=== PATIENT | female | born 1975 ===

== ENCOUNTER 2017-03-04 08:17 | Emergency (ER) | payer BC, SELFPAY ==
--- NOTE | 2017-03-04 08:44 | EDM.PDOC ---
ED HPI GENERAL MEDICAL PROBLEM - General Chief Complaint: General Stated Complaint: SORE THROAT Time Seen by Provider: 03/04/17 08:43 - History of Present Illness INITIAL COMMENTS - FREE TEXT/NARRATIVE: HISTORY AND PHYSICAL: History of present illness: Patient's 41-year-old female presents with a concern of cough sore throat general body aches vomiting diarrhea or last several days no documented fever chills or other concern Review of systems: As per history of present illness and below otherwise all systems reviewed and negative. Past medical history: As per history of present illness and as reviewed below otherwise noncontributory. Surgical history: As per history of present illness and as reviewed below otherwise noncontributory. Social history: No reported history of drug or alcohol abuse. Family history: As per history of present illness and as reviewed below otherwise noncontributory. Physical exam: HEENT: Atraumatic, normocephalic, pupils reactive, negative for conjunctival pallor or scleral icterus, mucous membranes moist, throat clear, neck supple, nontender, trachea midline. Lungs: Clear to auscultation, breath sounds equal bilaterally, chest nontender. Heart: S1S2, regular, negative for clicks, rubs, or JVD. Abdomen: Soft, nondistended, nontender. Negative for masses or hepatosplenomegaly. Negative for costovertebral tenderness. Pelvis: Stable nontender. Genitourinary: Deferred. Rectal: Deferred. Extremities: Atraumatic, negative for cords or calf pain. Neurovascular unremarkable. Neuro: Awake, alert, oriented. Cranial nerves II through XII unremarkable. Cerebellum unremarkable. Motor and sensory unremarkable throughout. Exam nonfocal. Diagnostics: Chest x-ray influenza screen rapid strep Therapeutics: None Impression: #1 viral syndrome Definitive disposition and diagnosis as appropriate pending reevaluation and review of above. Generalized Pain Score (Numeric/FACES): 10 - Related Data Allergies Allergy/AdvReac Type Severity Reaction Status Date / Time oxycodone HCl [From Percocet] Allergy Intermediate Hives Verified 03/04/17 08:35 Penicillins Allergy Intermediate Shortness Verified 03/04/17 08:35 of Breath codeine Allergy Mild Hives Verified 03/04/17 08:35 hydrocodone Allergy Hives Verified 03/04/17 08:35 morphine AdvReac Nausea and Verified 03/04/17 08:35 Vomiting propoxyphene napsylate AdvReac Nausea and Verified 03/04/17 08:35 [From Darvocet-N 100] Vomiting Sulfa (Sulfonamide AdvReac Diarrhea Verified 03/04/17 08:35 Antibiotics) Home Meds: Home Meds Albuterol [Ventolin HFA] 2 puff INH Q4H PRN 06/29/13 [History] Past Medical History HEENT History: Reports: Other (See Below) Other HEENT History: dental abcess Respiratory History: Reports: Asthma Genitourinary History: Reports: UTI, Recurrent Other Genitourinary History: frequent UTI, kidney infection [employer] History: Reports: Other OB/BYN History: 2 vaginal living children Psychiatric History: Reports: Anxiety Hematologic History: Reports: Anemia Other Oncologic History: 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 - Infectious Disease History Infectious Disease History: Reports: Chicken Pox - Past Surgical History GI Surgical History: Reports: Appendectomy, EGD Female Surgical History: Reports: Breast Implant, Hysterectomy Other Musculoskeletal Surgeries/Procedures:: R wrist surgery x 2 Social & Family History - Family History Family Medical History: Noncontributory - Tobacco Use Smoking Status *Q: Never Smoker Second Hand Smoke Exposure: No - Caffeine Use Caffeine Use: Reports: None - Alcohol Use Days Per Week of Alcohol Use: 0 - Recreational Drug Use Recreational Drug Use: No - Living Situation & Occupation Occupation: Employed ED ROS GENERAL - Review of Systems Review Of Systems: ROS reveals no pertinent complaints other than HPI. ED EXAM, GENERAL - Physical Exam Exam: See Below (See dictation) Course - Vital Signs Last Recorded V/S: Last Vital Signs Temp 37.1 C 03/04/17 08:33 Pulse 108 H 03/04/17 08:33 Resp 18 03/04/17 08:33 BP 133/103 H 03/04/17 08:33 Pulse Ox 98 03/04/17 08:33 - Orders/Labs/Meds Orders: Active Orders 24 hr Category Date Time Status Chest 2V [CR] Stat Exams 03/04/17 08:31 Taken CULTURE STREP A CONFIRMATION [RM] Stat Lab 03/04/17 08:27 Results STREP SCRN A RAPID W CULT CONF [RM] Stat Lab 03/04/17 08:27 Results Departure - Departure Time of Disposition: 09:33 Disposition: Home, Self-Care 01 Condition: Good Clinical Impression: Viral syndrome - Discharge Information Instructions: Viral Respiratory Infection, [id number] Referrals: PCP,None [Primary Care Provider] - Forms: ED Department Discharge Additional Instructions: The following information is given to patients seen in the emergency department who are being discharged to home. This information is to outline your options for follow-up care. We provide all patients seen in our emergency department with a follow-up referral. The need for follow-up, as well as the timing and circumstances, are variable depending upon the specifics of your emergency department visit. If you don't have a primary care physician on staff, we will provide you with a referral. We always advise you to contact your personal physician following an emergency department visit to inform them of the circumstance of the visit and for follow-up with them and/or the need for any referrals to a consulting specialist. The emergency department will also refer you to a specialist when appropriate. This referral assures that you have the opportunity for followup care with a specialist. All of these measure are taken in an effort to provide you with optimal care, which includes your followup. Under all circumstances we always encourage you to contact your private physician who remains a resource for coordinating your care. When calling for followup care, please make the office aware that this follow-up is from your recent emergency room visit. If for any reason you are refused follow-up, please contact the [facility] emergency department at and asked to speak to the emergency department charge nurse. Follow-up primary medical doctor wanted 2 days Motrin/Tylenol direct return as needed as discussed - My Orders Last 24 Hours: My Active Orders 03/04/17 08:27 CULTURE STREP A CONFIRMATION [RM] Stat STREP SCRN A RAPID W CULT CONF [RM] Stat 03/04/17 08:31 Chest 2V [CR] Stat - Assessment/Plan Last 24 Hours: My Active Orders 03/04/17 08:27 CULTURE STREP A CONFIRMATION [RM] Stat STREP SCRN A RAPID W CULT CONF [RM] Stat 03/04/17 08:31 Chest 2V [CR] Stat
[2017-03-04 09:40] VITALS: BP 145/97
--- NOTE | 2017-03-07 13:38 | CR ---
EXAM DATE: 03/04/17 PATIENT'S AGE: 41 Patient: BETTY SWANSON Facility: [place], [place] Site . Site : [id number] Study: XRay Chest [id number]/23/2017 8:49:45 AM Ordering Physician: Doctor Lott Final Report: Indicate : Pain. Shortness of breath. Cough. Technique: PA and lateral chest x-ray. Findings: Heart size normal. Lungs clear. Mild gas distention of bowel loops in the upper abdomen. Chest otherwise negative without acute disease. Dictated by Tarun Easton MD @ Mar 04 2017 9:08AM (Electronic Signature) Report Signed by Proxy. YAYA
== END 2017-03-04 09:39 | disposition home or self-care (01) ==
LOC: MW.ED 08:17
DX: B34.9 Viral infection, unspecified (principal); Z88.5 Allergy status to narcotic agent; Z88.0 Allergy status to penicillin; Z88.2 Allergy status to sulfonamides
CPT/HCPCS: 71020; 71020-26; 87081; 87804; 87880; 99283